=== PATIENT | male | born 1945 | race Caucasian/White ===

== ENCOUNTER 2019-10-11 16:39 | Emergency (ER) | payer MEDICARE ==
[2019-10-11 17:09] LABS: #Basophils 0.1 thou/uL (0.0-0.2); #Eosinphils 0.3 thou/uL (0.0-0.7); #Lymphocytes 1.9 thou/uL (1.20-3.40); #Monocytes 0.3 thou/uL (0.11-0.59); #Neutrophils 3.6 thou/uL (1.40-6.50); %Basophils 1.5 % (0.0-1.0); %Eosinophils 5.4 % (0.0-10.0); %Monocytes 4.6 % (0.0-10.0); %Neutrophils 58.5 % (42.0-75.0); Hemoglobin 11.9 g/dL (14.0-18.0); Mean Corpuscular HGB CONC 32.7 g/dL (32.0-36.0); Mean Corpuscular Hemoglobin 30.7 pg (27.0-31.0); Mean Corpuscular Volume 93.9 fL (78.0-98.0); Mean Platelet Volume 7.8 fL (7.4-10.4); Platelet Count 160 thou/uL (130-400); RBC Distribution Width 11.5 % (11.5-14.5); Red Blood Cell (RBC) Count 3.87 mill/uL (4.70-6.10); White Blood Cell (WBC) Count 6.2 thou/uL (4.8-10.8)
--- NOTE | 2019-10-11 17:13 | RAD ---
XR Chest 1 View Portable History: Chest pain with shortness of breath Comparison: Radiograph 2015 Findings: There is linear artifact limiting evaluation. Patient rotated markedly to the right. No confluent airspace consolidation, pneumothorax or effusion. The right costophrenic sulcus is not i nterrogated. No acute osseous abnormality. Impression: Within the limits of this exam, no acute intrathoracic abnormality. Obstructive pulmonary disease.
[2019-10-11 17:21] LABS: ALT (SGPT) 9 U/L (8-55); AST (SGOT) 16 U/L (5-34); Alkaline Phosphatase 69 U/L (40-110); Anion Gap 13 mmol/L (10-20); BUN (Urea Nitrogen) 15 mg/dL (8.4-25.7); Bilirubin, Total 0.5 mg/dL (0.2-1.2); Calc. Creatinine Clearance 0 mL/min (70-130); Calcium 9.3 mg/dL (7.8-10.44); Carbon Dioxide 22 mmol/L (23-31); Chloride 112 mmol/L (98-107); Estimated GFR-MDRD 42; Globulin 2.4 g/dL (2.4-3.5); Glucose 98 mg/dL (83-110); Potassium 4.4 mmol/L (3.5-5.1); Protein, Total 6.4 g/dL (5.8-8.1); Sodium 143 mmol/L (136-145)
[2019-10-11 17:39] LABS: CKMB 1.7 ng/mL (0-6.6)
[2019-10-11] MEDS ORDERED: Clopidogrel Bisulfate 75 MG TAB ONE (17:52)
[2019-10-11] MEDS ORDERED: Gentamicin 80 MG/2 ML VIAL ONE (17:58)
[2019-10-11] MEDS ORDERED: Gabapentin 100 MG CAP ONE (17:58)
[2019-10-11] MEDS ORDERED: Furosemide 20 MG/2 ML VIAL ONE (18:06)
== END 2019-10-11 18:10 | disposition short-term general hospital (02) ==
LOC: MADERS 16:39
DX: I24.9 Acute ischemic heart disease, unspecified (principal); N17.9 Acute kidney failure, unspecified; E87.70 Fluid overload, unspecified; J45.909 Unspecified asthma, uncomplicated; F17.220 Nicotine dependence, chewing tobacco, uncomplicated
CPT/HCPCS: 71045; 80053; 82553; 83880; 84484; 85025; 93005; J1580; J1940

== ENCOUNTER 2020-08-16 18:33 | Emergency (ER) | payer MEDICARE ==
[2020-08-16 19:14] LABS: #Basophils 0.1 thou/uL (0.0-0.2); #Eosinphils 0.4 thou/uL (0.0-0.7); #Monocytes 0.4 thou/uL (0.11-0.59); %Basophils 0.7 % (0.0-1.0); %Eosinophils 5.1 % (0.0-10.0); %Lymphocytes 25.5 % (21.0-51.0); %Monocytes 4.9 % (0.0-10.0); %Neutrophils 63.7 % (42.0-75.0); Hemoglobin 11.9 g/dL (14.0-18.0); Mean Corpuscular HGB CONC 33.7 g/dL (32.0-36.0); Mean Corpuscular Hemoglobin 32.2 pg (27.0-31.0); Mean Corpuscular Volume 95.5 fL (78.0-98.0); Mean Platelet Volume 7.8 fL (7.4-10.4); Platelet Count 142 thou/uL (130-400); RBC Distribution Width 11.7 % (11.5-14.5); Red Blood Cell (RBC) Count 3.68 mill/uL (4.70-6.10); White Blood Cell (WBC) Count 7.8 thou/uL (4.8-10.8)
[2020-08-16 19:22] LABS: PTT 27.3 sec (22.9-36.1); Prothrombin Time 13.2 sec (12.0-14.7)
[2020-08-16 19:32] LABS: ALT (SGPT) 11 U/L (8-55); AST (SGOT) 16 U/L (5-34); Albumin 3.9 g/dL (3.4-4.8); Alkaline Phosphatase 71 U/L (40-110); Anion Gap 14 mmol/L (10-20); BUN (Urea Nitrogen) 17 mg/dL (8.4-25.7); Bilirubin, Total 0.5 mg/dL (0.2-1.2); Calc. Creatinine Clearance 0 mL/min (70-130); Calcium 8.8 mg/dL (7.8-10.44); Carbon Dioxide 24 mmol/L (23-31); Chloride 109 mmol/L (98-107); Globulin 2.5 g/dL (2.4-3.5); Glucose 109 mg/dL (83-110); Protein, Total 6.4 g/dL (5.8-8.1); Sodium 143 mmol/L (136-145)
== END 2020-08-16 20:39 | disposition home or self-care (01) ==
LOC: MADERS 18:33
DX: R42 Dizziness and giddiness (principal); R29.700 NIHSS score 0; J45.909 Unspecified asthma, uncomplicated; K58.9 Irritable bowel syndrome, unspecified; I10 Essential (primary) hypertension; F17.220 Nicotine dependence, chewing tobacco, uncomplicated; Z85.820 Personal history of malignant melanoma of skin
CPT/HCPCS: 70450; 80053; 85025; 85610; 85730; 93005

== ENCOUNTER 2021-02-02 17:13 | Emergency (ER) | payer MEDICARE | END 2021-02-02 18:40 | disposition home or self-care (01) | LOC: MADERS 17:13 | DX: S06.9X9A Unspecified intracranial injury with loss of consciousness of unspecified duration, initial encounter (principal); J45.909 Unspecified asthma, uncomplicated; I10 Essential (primary) hypertension; V29.9XXA Motorcycle rider (driver) (passenger) injured in unspecified traffic accident, initial encounter; Z85.820 Personal history of malignant melanoma of skin | CPT/HCPCS: 70450 ==

== ENCOUNTER 2021-12-10 12:54 | Emergency (ER) | payer MEDICARE ==
[2021-12-10] MEDS ORDERED: Boostrix 0.5 ML (Tdap) VIAL ONE (14:11)
== END 2021-12-10 14:19 | disposition home or self-care (01) ==
LOC: MADERS 12:54
DX: S51.011A Laceration without foreign body of right elbow, initial encounter (principal); S20.212A Contusion of left front wall of thorax, initial encounter; I10 Essential (primary) hypertension; F17.220 Nicotine dependence, chewing tobacco, uncomplicated; C43.9 Malignant melanoma of skin, unspecified; W18.00XA Striking against unspecified object with subsequent fall, initial encounter
CPT/HCPCS: 90715

== ENCOUNTER 2023-03-14 15:35 | Emergency (ER) | payer MEDICARE | END 2023-03-14 16:15 | disposition home or self-care (01) | LOC: MADERS 15:35 | DX: R05.9 Cough, unspecified (principal); T48.3X5A Adverse effect of antitussives, initial encounter; I10 Essential (primary) hypertension; F17.220 Nicotine dependence, chewing tobacco, uncomplicated | CPT/HCPCS: 99283 ==

== ENCOUNTER 2024-02-17 10:41 | Emergency (ER) | payer MEDICARE | END 2024-02-17 11:33 | disposition home or self-care (01) | LOC: MADERS 10:41 | DX: M25.532 Pain in left wrist (principal); K91.5 Postcholecystectomy syndrome; R19.7 Diarrhea, unspecified; I10 Essential (primary) hypertension; J45.909 Unspecified asthma, uncomplicated | CPT/HCPCS: 99284 ==

== ENCOUNTER 2024-07-29 12:01 | Emergency (ER) | payer MEDICARE ==
[2024-07-29] MEDS ORDERED: HYDROmorphone 0.5 MG/0.5 ML SYRINGE ONE (12:29)
[2024-07-29] MEDS ORDERED: Sodium Chloride 0.9% 1,000 ML ONE ×3 (12:29→18:35)
[2024-07-29] MEDS ORDERED: Ondansetron PF 4 MG/2 ML Vial ONE (12:30)
[2024-07-29 13:04] LABS: Hematocrit 35.3 % (42.0-52.0); Hemoglobin 11.2 g/dL (14.0-18.0); MDiff Complete? YES; Manual Diff?? YES; Mean Corpuscular HGB CONC 31.7 g/dL (32.0-36.0); Mean Corpuscular Hemoglobin 30.5 pg (27.0-31.0); Mean Corpuscular Volume 96.2 fl (78.0-98.0); Mean Platelet Volume 7.7 fL (7.4-10.4); Platelet Count 67 10x3/uL (130-400); RBC Distribution Width 12.2 % (11.5-14.5); Red Blood Cell (RBC) Count 3.66 mill/uL (4.70-6.10); White Blood Cell (WBC) Count 8.5 10x3/uL (4.8-10.8)
[2024-07-29 13:05] LABS: INR-International Normal Ratio 1.2; Prothrombin Time 14.8 sec (12.0-14.7)
[2024-07-29 13:13] LABS: ALT (SGPT) 16 U/L (Less than 45); AST (SGOT) 25 U/L (11-34); Albumin 3.7 g/dL (3.1-4.5); Alkaline Phosphatase 68 U/L (40-110); Anion Gap 15 mmol/L (10-20); BUN (Urea Nitrogen) 29 mg/dL (8.4-25.7); Band 1 % (5-11); Bilirubin, Total 2.4 mg/dL (0.3-1.2); Calc. Creatinine Clearance 0 mL/min (70-130); Calcium 8.9 mg/dL (7.8-10.44); Carbon Dioxide 20 mmol/L (23-31); Chloride 110 mmol/L (98-107); Eosinophils 2 % (0-10); Estimated GFR 27; Globulin 2.5 g/dL (2.4-3.5); Glucose 109 mg/dL (83-110); Lipase 75 U/L (8-78); Lymphocytes 14 % (21-51); Monocytes 2 % (0-10); Neutrophil 80 % (42-75); Platelet Adequacy Comment Appears Decreased; Potassium 4.5 mmol/L (3.5-5.1); Protein, Total 6.2 g/dL (5.8-8.1); Reactive Lymphocytes 1 % (0-10); Sodium 140 mmol/L (136-145)
[2024-07-29] MEDS ORDERED: Sodium Chloride 0.9% 100 ML ONE (18:35)
[2024-07-29] MEDS ORDERED: Ampicillin/Sulbactam 3 GM VIAL ONE (18:35)
[2024-07-29] MEDS ORDERED: Haloperidol Lactate 5 MG/ML VIAL ONE ×2 (19:29→20:52)
[2024-07-29 20:41] LABS: Bilirubin Small (Negative); Blood, Urine Moderate (Negative); Glucose, Urine (Dipstick) Negative (Negative); Ketone, Urine Trace mg/dL (Negative); Leukocyte Negative (Negative); Nitrite Positive (Negative); Protein, Urine (Dipstick) > or equal to 300 mg/dL (Neg-Trace); Specific Gravity, Urine Greater/Equal 1.030 (1.005-1.030); Urobilinogen 0.2 mg/dL (Less than 2); pH, Urine 5.5 (5.0-9.0)
[2024-07-29 20:42] LABS: CAUTI Indications for Culture Alt mental st,lethar; Clarity Cloudy (Clear); RBC/HPF 21-50 HPF (0-3)
[2024-07-29 20:43] LABS: Bacteria/HPF 1+ HPF (None Seen)
[2024-07-29 20:44] LABS: Urine Culture Reflex No No
[2024-07-29 20:46] LABS: Amphetamine Negative (Negative); Barbiturates Screen Negative (Negative); Benzodiazepine Screen Negative (Negative); Cocaine Metabolite Screen Negative (Negative); Methadone Negative (Negative); Methamphetamine Negative (Negative); Opiate Screen Negative (Negative); Oxycodone Screen Negative (Negative); Phencyclidine (PCP) Negative (Negative); THC/Cannabinoid Screen Negative (Negative); Tricyclic Screen Negative (Negative)
== END 2024-07-29 21:25 | disposition short-term general hospital (02) ==
LOC: MADERS 12:01
DX: N17.9 Acute kidney failure, unspecified (principal); K52.9 Noninfective gastroenteritis and colitis, unspecified; R41.82 Altered mental status, unspecified; N39.0 Urinary tract infection, site not specified; I10 Essential (primary) hypertension; F17.290 Nicotine dependence, other tobacco product, uncomplicated
CPT/HCPCS: 36415; 70450; 74176; 80053; 80306; 81001; 83690; 85025; 85610; 87040; 87086; 93005; 96361; 96365; 96366; 96372; 96375; J0295; J1171; J1630; J2405; J7030